=== PATIENT | female | born 1955 | race African-American/Black ===

== ENCOUNTER 2016-10-26 11:51 | Emergency (ER) | payer MEDICAID ==
--- NOTE | 2016-10-26 12:05 | ER Document Report ---
ED Medical Screen (RME) - General Chief Complaint: Breathing Difficulty Stated Complaint: DIFFICULTY BREATHING Time seen by provider: 12:03 Mode of Arrival: Wheelchair Information source: Patient Notes: 60-year-old female states she has had a cough off and on for 4 weeks today when she was at electric commonly she got very short of breath between the time she was at the electric on the end emergency room the shortness of breath was relieved. She has elevated blood pressure in RME but she states she is on blood pressure medicine. Eyes any symptoms I have greeted and performed a rapid initial assessment of this patient. A comprehensive ED assessment and evaluation of the patient, analysis of test results and completion of medical decision making process will be conducted by an additional ED providers. TRAVEL OUTSIDE OF THE [place] IN LAST 30 DAYS: No - Related Data Allergies/Adverse Reactions: Penicillins Allergy (Verified 09/14/16 07:40) Past Medical History - Past Medical History Cardiac Medical History: Reports: Hx Hypertension Malignancy Medical History: Reports: Hx Breast Cancer - abnormal left breast nodule. states unkown if cancerous Musculoskeltal Medical History: Reports Hx Arthritis - RA Psychiatric Medical History: Reports: Hx Anxiety Past Surgical History: Reports: Hx Breast Surgery, Hx Section, Hx Vascular Surgery - vein stripping - Immunizations Immunizations up to date: No Hx Diphtheria, Pertussis, Tetanus Vaccination: Yes
[2016-10-26 12:41] LABS: ABSOLUTE EOSINOPHILS # (AUTO) 0.1 10^3/uL (0.0-0.6); ABSOLUTE LYMPHOCYTES (AUTO) 0.8 10^3/uL (0.5-4.7); ABSOLUTE MONOCYTES (AUTO) 0.4 10^3/uL (0.1-1.4); ABSOLUTE NEUT (AUTO) 2.4 10^3/uL (1.7-8.2); BASOPHILS % (AUTO) 0.7 % (0-2); HEMATOCRIT 34.1 % (36.0-47.0); HEMOGLOBIN 11.3 g/dL (12.0-15.5); HGB HCT DIFFERENCE -0.2; LYMPHOCYTES % (AUTO) 21.9 % (13-45); MEAN CORPUSCULAR HEMOGLOBIN 30.5 pg (27.0-33.4); MEAN CORPUSCULAR HGB CONC 33.1 g/dL (32.0-36.0); MEAN CORPUSCULAR VOLUME 92 fl (80-97); MONOCYTES % (AUTO) 11.7 % (3-13); RED BLOOD COUNT 3.71 10^6/uL (3.72-5.28); RED CELL DISTRIBUTION WIDTH 15.2 % (11.5-14.0); SEGMENTED NEUTROPHILS % (AUTO) 63.7 % (42-78); WHITE BLOOD COUNT 3.8 10^3/uL (4.0-10.5)
[2016-10-26 12:47] LABS: APPEARANCE,URINE SLIGHTLY-CLOUDY; BILIRUBIN,URINE NEGATIVE (NEGATIVE); GLUCOSE, URINE NEGATIVE (NEGATIVE); KETONES,URINE NEGATIVE (NEGATIVE); LEUKOCYTE ESTERASE,URINE SMALL (NEGATIVE); NITRITE,URINE NEGATIVE (NEGATIVE); PROTEIN,URINE 100 mg/dL (NEGATIVE); UROBILINOGEN,URINE NEGATIVE mg/dL (<2.0)
[2016-10-26 13:13] LABS: ALANINE AMINOTRANSFERASE 22 U/L (9-52); ALKALINE PHOSPHATASE 68 U/L (38-126); ANION GAP 11 (5-19); ASPARTATE AMINO TRANSFERASE 18 U/L (14-36); BILIRUBIN,TOTAL 0.5 mg/dL (0.2-1.3); BLOOD UREA NITROGEN 19 mg/dL (7-20); CALCIUM 9.3 mg/dL (8.4-10.2); CARBON DIOXIDE 28 mmol/L (22-30); CHLORIDE 103 mmol/L (98-107); CREATININE RESULT 0.97 mg/dL (0.52-1.25); GLUCOSE 105 mg/dL (75-110); POTASSIUM 4.2 mmol/L (3.6-5.0); SODIUM 142.3 mmol/L (137-145); TOTAL PROTEIN 8.1 g/dL (6.3-8.2)
--- NOTE | 2016-10-26 15:50 | EKG REPORT ---
SEVERITY:- BORDERLINE ECG - SINUS RHYTHM PROBABLE LEFT ATRIAL ABNORMALITY MINIMAL ST ELEVATION, INFERIOR LEADS : Confirmed by: Fior Mixon 26-Oct-2016 15:49:59
--- NOTE | 2016-10-26 16:08 | ER Document Report ---
ED Respiratory Problem - General Chief Complaint: Cough Stated Complaint: DIFFICULTY BREATHING Mode of Arrival: Wheelchair Information source: Patient Notes: 60-year-old female presents to the emergency department complaining of episode of shortness of breath. Patient reports has had persistent cough for approximately the last 3 weeks which she states has lingered after a cold. States cough is productive with small amounts of greenish sputum. Patient reports had episode of shortness of breath this morning they cause her to come to the ED however states shortness of breath had resolved upon arrival. Denies chest pain, fever, nausea or vomiting, diaphoresis. TRAVEL OUTSIDE OF THE [place] IN LAST 30 DAYS: No - HPI Patient complains to provider of: Cough, Short of breath Duration: Worse/persistent Initiating Event: URI Quality of pain: No pain Severity: Mild Pain Level: Denies Short of Breath: Mild Cough: Productive Sputum amount: Scant Sputum color: Green Similar symptoms previously: Yes Recently seen / treated by doctor: No - Related Data Allergies/Adverse Reactions: Penicillins Allergy (Verified 10/26/16 14:12) Past Medical History - General Information source: Patient - Social History Smoking Status: Never Smoker Frequency of alcohol use: None Drug Abuse: None Lives with: Family Family History: Hypertension Patient has suicidal ideation: No Patient has homicidal ideation: No - Past Medical History Cardiac Medical History: Reports: Hx Hypertension Renal/ Medical History: Denies: Hx Peritoneal Dialysis Malignancy Medical History: Reports: Hx Breast Cancer - abnormal left breast nodule. states unkown if cancerous Musculoskeltal Medical History: Reports Hx Arthritis - RA Psychiatric Medical History: Reports: Hx Anxiety Past Surgical History: Reports: Hx Breast Surgery, Hx Section, Hx Vascular Surgery - vein stripping - Immunizations Immunizations up to date: No Hx Diphtheria, Pertussis, Tetanus Vaccination: Yes Review of Systems - Review of Systems Constitutional: No symptoms reported EENT: No symptoms reported Cardiovascular: No symptoms reported Respiratory: See HPI Gastrointestinal: No symptoms reported Genitourinary: No symptoms reported Female Genitourinary: No symptoms reported Musculoskeletal: No symptoms reported Skin: No symptoms reported Hematologic/Lymphatic: No symptoms reported Neurological/Psychological: No symptoms reported -: Yes All other systems reviewed and negative Physical Exam - Vital signs Vitals: Temp Pulse Resp BP Pulse Ox 97.9 F 75 18 221/86 H 99 10/26/16 12:00 10/26/16 12:00 10/26/16 12:00 10/26/16 12:00 10/26/16 12:00 Interpretation: Normal - General General appearance: Appears well, Alert In distress: None - HEENT Head: Normocephalic, Atraumatic Eyes: Normal Pupils: PERRL - Respiratory Respiratory status: No respiratory distress Chest status: Nontender Breath sounds: Normal - CTAB, Nonproductive cough. No: Rhonchi, Wheezing Chest palpation: Normal - Cardiovascular Rhythm: Regular Heart sounds: Normal auscultation Murmur: No Pulses: Normal: Radial Normal capillary refill: Yes - Abdominal Inspection: Normal Distension: No distension Bowel sounds: Normal Tenderness: Nontender Organomegaly: No organomegaly - Back Back: Normal, Nontender - Extremities General upper extremity: Normal inspection, Nontender, Normal color, Normal ROM , Normal strength, Normal temperature. No: Tender, Edema General lower extremity: Normal inspection, Nontender, Normal color, Normal ROM , Normal strength, Normal temperature, Normal weight bearing. No: Tender, Edema , Rachana's sign - Neurological Neuro grossly intact: Yes Cognition: Normal Orientation: AAOx4 [place] Coma Scale Eye Opening: Spontaneous [place] Coma Scale Verbal: Oriented [place] Coma Scale Motor: Obeys Commands [place] Coma Scale Total: 15 Speech: Normal Motor strength normal: LUE, RUE, LLE, RLE Sensory: Normal - Psychological Associated symptoms: Normal affect, Normal mood - Skin Skin Temperature: Warm Skin Moisture: Dry Skin Color: Normal Course - Re-evaluation Re-evalutation: 10/26/16 16:20 Patient very well appearing, hemodynamically stable, in no distress, afebrile. Chest x-ray shows stable cardiomegaly with mild vascular prominence and no other significant abnormalities or suggestion of pneumonia. Labs appear to be at patient's baseline when compared to previous results. Patient presentation, findings, previous history, and ED care up to this point discussed with ED physician Dr. Vega recommends symptomatic treatment and follow-up with primary care provider within one to 2 days. Patient appears so for discharge at this time and states feels much better, agrees with home care, follow-up with PCP, and ED return precautions. - Vital Signs Vital signs: Temp Pulse Resp BP Pulse Ox 98.9 F 50 L 16 177/93 H 98 10/26/16 16:18 10/26/16 16:18 10/26/16 16:18 10/26/16 16:18 10/26/16 16:18 - Laboratory Result Diagrams: 10/26/16 12:20 10/26/16 12:20 Laboratory results interpreted by me: 10/26/16 10/26/16 10/26/16 12:20 12:20 12:20 WBC 3.8 L RBC 3.71 L Hgb 11.3 L Hct 34.1 L RDW 15.2 H Est GFR (Non-Af Amer) 59 L Urine Protein 100 H Ur Leukocyte Esterase SMALL H - Diagnostic Test Radiology reviewed: Image reviewed, Reports reviewed - EKG Interpretation by Me EKG shows normal: Sinus rhythm, [place], Intervals, QRS Complexes, ST-T Waves Rate: Normal Rhythm: NSR When compared to previous EKG there are: No significant change Discharge - Discharge Clinical Impression: Shortness of breath, Cough Condition: Stable Disposition: HOME, SELF-CARE Instructions: Dyspnea, Nonspecific ([facility]), Cough Suppressant & Expectorant Medications, Upper Respiratory Illness ([facility]) Additional Instructions: Follow-up with your primary care provider tomorrow as discussed. Return to the emergency department for any worsening symptoms or concerns. Prescriptions: Guaifenesin/D-Methorphan Hb [Guaifenesin-Dextromethorph Tab] 1 each PO Q12HP PRN #8 tab.sr.[id number] PRN Reason: Cough Forms: Elevated Blood Pressure Referrals: DENISE LUJAN MD [Primary Care Provider] - Follow up tomorrow
[2016-10-26 16:20] VITALS: BP 177/93
== END 2016-10-26 16:20 | disposition home or self-care (01) ==
LOC: ER 11:51
DX: R06.02 Shortness of breath (principal); R05 Cough
CPT/HCPCS: 36415; 71020; 80053; 81001; 85025; 93005; 93010; 99284

== ENCOUNTER 2017-11-18 10:22 | Emergency (ER) | payer MEDICAID ==
--- NOTE | 2017-11-18 10:55 | ER Document Report ---
ED Medical Screen (RME) - General Chief Complaint: Palpitations Stated Complaint: CHEST PALPITATIONS Time Seen by Provider: 11/18/17 10:51 Mode of Arrival: Ambulatory Information source: Patient Notes: This is a 61-year-old female with a history of hypertension and anxiety who presents to the emergency room with sensations of heart racing occurs when she stands up. Patient denies shortness of breath. She looks a bit uncomfortable in triage. Her oxygen saturation is 96%. Her initial EKG is sinus tachycardia with no acute ST or T-wave changes. She denies calf tenderness. She denies history of thyroid dysfunction. Primary CARE physician: Dr. Pal Medicines: Amlodipine, hydrochlorothiazide, metoprolol, cetirizine. Family history: Patient denies history of VTE, early heart disease. Allergies: Penicillin Social: Denies smoking TRAVEL OUTSIDE OF THE [place] IN LAST 30 DAYS: No - Related Data Allergies/Adverse Reactions: Penicillins Allergy (Verified 10/26/16 14:12) Past Medical History - Social History Chew tobacco use (# tins/day): No Frequency of alcohol use: None Drug Abuse: None - Past Medical History Cardiac Medical History: Reports: Hx Hypertension Renal/ Medical History: Denies: Hx Peritoneal Dialysis Malignancy Medical History: Reports: Hx Breast Cancer - abnormal left breast nodule. states unkown if cancerous Musculoskeltal Medical History: Reports Hx Arthritis - RA Psychiatric Medical History: Reports: Hx Anxiety Past Surgical History: Reports: Hx Breast Surgery, Hx Section, Hx Vascular Surgery - vein stripping - Immunizations Immunizations up to date: No Hx Diphtheria, Pertussis, Tetanus Vaccination: Yes Physical Exam - Vital signs Vitals: Temp Pulse Resp BP Pulse Ox 98.7 F 132 H 20 179/79 H 99 11/18/17 10:43 11/18/17 10:43 11/18/17 10:43 11/18/17 10:43 11/18/17 10:43 Course - Vital Signs Vital signs: Temp Pulse Resp BP Pulse Ox 98.7 F 132 H 20 179/79 H 99 11/18/17 10:43 11/18/17 10:43 11/18/17 10:43 11/18/17 10:43 11/18/17 10:43
[2017-11-18] MEDS ORDERED: NORMAL SALINE 1000 ML 1,000 ML IV ONE (11:14)
--- NOTE | 2017-11-18 11:16 | ER Document Report ---
ED General - General Chief Complaint: Palpitations Stated Complaint: CHEST PALPITATIONS Time Seen by Provider: 11/18/17 10:51 Mode of Arrival: Ambulatory TRAVEL OUTSIDE OF THE [place] IN LAST 30 DAYS: No - HPI Patient complains to provider of: tachycardia Notes: Patient presents with tachycardia when standing. She feels her heart racing. Has no history of palpitations or thyroid dysfunction. Denies shortness of breath or chest pain. Denies any fever chills or illnesses. Patient is on disability secondary to anxiety disorder. Has had multiple panic attacks in the past similar to this 1. - Related Data Allergies/Adverse Reactions: Penicillins Allergy (Verified 10/26/16 14:12) Past Medical History - General Information source: Patient - Social History Smoking Status: Former Smoker Chew tobacco use (# tins/day): No Frequency of alcohol use: None Drug Abuse: None Family History: Hypertension Patient has suicidal ideation: No Patient has homicidal ideation: No - Past Medical History Cardiac Medical History: Reports: Hx Hypertension Renal/ Medical History: Denies: Hx Peritoneal Dialysis Malignancy Medical History: Reports: Hx Breast Cancer - abnormal left breast nodule. states unkown if cancerous Musculoskeltal Medical History: Reports Hx Arthritis - RA Psychiatric Medical History: Reports: Hx Anxiety Past Surgical History: Reports: Hx Breast Surgery, Hx Section, Hx Vascular Surgery - vein stripping - Immunizations Immunizations up to date: No Hx Diphtheria, Pertussis, Tetanus Vaccination: Yes Review of Systems - Review of Systems Constitutional: No symptoms reported EENT: No symptoms reported Cardiovascular: Palpitations Respiratory: No symptoms reported Gastrointestinal: No symptoms reported Genitourinary: No symptoms reported Female Genitourinary: No symptoms reported Musculoskeletal: No symptoms reported Skin: No symptoms reported Hematologic/Lymphatic: No symptoms reported Neurological/Psychological: No symptoms reported Physical Exam - Vital signs Vitals: Temp Pulse Resp BP Pulse Ox 98.7 F 132 H 20 179/79 H 99 11/18/17 10:43 11/18/17 10:43 11/18/17 10:43 11/18/17 10:43 11/18/17 10:43 Interpretation: Normal - General General appearance: Appears well, Alert - HEENT Head: Normocephalic, Atraumatic Eyes: Normal Pupils: PERRL - Respiratory Respiratory status: No respiratory distress Chest status: Nontender Breath sounds: Normal Chest palpation: Normal - Cardiovascular Rhythm: Regular Heart sounds: Normal auscultation Murmur: No - Abdominal Inspection: Normal Distension: No distension Bowel sounds: Normal Tenderness: Nontender Organomegaly: No organomegaly - Back Back: Normal, Nontender - Extremities General upper extremity: Normal inspection, Nontender, Normal color, Normal ROM , Normal temperature General lower extremity: Normal inspection, Nontender, Normal color, Normal ROM , Normal temperature, Normal weight bearing. No: Rachana's sign - Neurological Neuro grossly intact: Yes Cognition: Normal Orientation: AAOx4 [place] Coma Scale Eye Opening: Spontaneous [place] Coma Scale Verbal: Oriented [place] Coma Scale Motor: Obeys Commands [place] Coma Scale Total: 15 Speech: Normal Motor strength normal: LUE, RUE, LLE, RLE Sensory: Normal - Psychological Associated symptoms: Normal affect, Normal mood - Skin Skin Temperature: Warm Skin Moisture: Dry Skin Color: Normal Course - Re-evaluation Re-evalutation: 11/18/17 12:27 Pleasant female presents with rapid heartbeat. Patient very anxious having panic attack. Given oral Ativan feeling much improved. EKG unremarkable, extensive lab workup unremarkable, chest x-ray shows no acute process. Follow- up with family doctor return if anything changes - Vital Signs Vital signs: Temp Pulse Resp BP Pulse Ox 98.7 F 94 17 166/83 H 100 11/18/17 10:43 11/18/17 11:20 11/18/17 11:20 11/18/17 11:20 11/18/17 11:20 - Laboratory Result Diagrams: 11/18/17 11:00 11/18/17 11:00 Laboratory results interpreted by me: 11/18/17 11/18/17 11:00 11:00 Hgb 11.9 L Hct 35.1 L Potassium 3.4 L BUN 23 H Est GFR (Non-Af Amer) 52 L Total Protein 8.4 H Discharge - Discharge Clinical Impression: Panic attack Disposition: HOME, SELF-CARE Instructions: Palpitations (Irregular or Rapid Heartrate) ([facility]) Additional Instructions: See your PCP
[2017-11-18 11:18] LABS: ABSOLUTE EOSINOPHILS # (AUTO) 0.1 10^3/uL (0.0-0.6); ABSOLUTE LYMPHOCYTES (AUTO) 1.4 10^3/uL (0.5-4.7); ABSOLUTE MONOCYTES (AUTO) 0.6 10^3/uL (0.1-1.4); ABSOLUTE NEUT (AUTO) 3.9 10^3/uL (1.7-8.2); BASOPHILS % (AUTO) 0.6 % (0-2); HEMATOCRIT 35.1 % (36.0-47.0); HEMOGLOBIN 11.9 g/dL (12.0-15.5); LYMPHOCYTES % (AUTO) 23.1 % (13-45); MEAN CORPUSCULAR HEMOGLOBIN 31.2 pg (27.0-33.4); MEAN CORPUSCULAR VOLUME 92 fl (80-97); MONOCYTES % (AUTO) 9.4 % (3-13); PLATELET COUNT 224 10^3/uL (150-450); RED BLOOD COUNT 3.82 10^6/uL (3.72-5.28); RED CELL DISTRIBUTION WIDTH 12.9 % (11.5-14.0); SEGMENTED NEUTROPHILS % (AUTO) 65.9 % (42-78); TOTAL CELLS COUNTED % (AUTO) 100 %; WHITE BLOOD COUNT 5.9 10^3/uL (4.0-10.5)
[2017-11-18] MEDS ORDERED: LORAZEPAM INJ 2 MG/1 ML VIAL IV ONE (11:20)
[2017-11-18] MEDS ORDERED: LORAZEPAM 1 MG TABLET PO ONE (11:37)
[2017-11-18 11:39] LABS: ALANINE AMINOTRANSFERASE 25 U/L (9-52); ALBUMIN 4.1 g/dL (3.5-5.0); ALKALINE PHOSPHATASE 61 U/L (38-126); ANION GAP 13 (5-19); ASPARTATE AMINO TRANSFERASE 20 U/L (14-36); BILIRUBIN,DIRECT 0.3 mg/dL (0.0-0.4); BILIRUBIN,TOTAL 0.5 mg/dL (0.2-1.3); BLOOD UREA NITROGEN 23 mg/dL (7-20); CALCIUM 9.9 mg/dL (8.4-10.2); CARBON DIOXIDE 23 mmol/L (22-30); CHLORIDE 105 mmol/L (98-107); CREATINE KINASE 95 U/L (30-135); GLUCOSE 108 mg/dL (75-110); POTASSIUM 3.4 mmol/L (3.6-5.0); SODIUM 141.1 mmol/L (137-145); TOTAL PROTEIN 8.4 g/dL (6.3-8.2)
[2017-11-18 11:50] LABS: CREATINE KINASE MB 0.57 ng/mL (<4.55)
[2017-11-18 11:52] LABS: TROPONIN I < 0.012 ng/mL
--- NOTE | 2017-11-18 12:35 | RADIOLOGY REPORT (SQ) ---
EXAM DESCRIPTION: CHEST PA/LAT COMPLETED DATE/TIME: 11/18/2017 12:11 pm REASON FOR STUDY: palpitations COMPARISON: 10/26/2016 EXAM PARAMETERS: NUMBER OF VIEWS: two views TECHNIQUE: Digital Frontal and Lateral radiographic views of the chest acquired. RADIATION DOSE: NA LIMITATIONS: none FINDINGS: LUNGS AND PLEURA: No opacities, masses or pneumothorax. No pleural effusion. MEDIASTINUM AND HILAR STRUCTURES: No masses or contour abnormalities. HEART AND VASCULAR STRUCTURES: Heart normal size. No evidence for failure. BONES: No acute findings. HARDWARE: None in the chest. OTHER: No other significant finding. IMPRESSION: NO SIGNIFICANT RADIOGRAPHIC FINDING IN THE CHEST. TECHNICAL DOCUMENTATION: JOB ID: [id number] [employer]- All Rights Reserved
[2017-11-18 12:57] VITALS: BP 142/56
--- NOTE | 2017-11-19 11:08 | EKG REPORT ---
SEVERITY:- ABNORMAL ECG - SINUS TACHYCARDIA RIGHT ATRIAL ABNORMALITY : Confirmed by: Fior Mixon 19-Nov-2017 11:07:44
== END 2017-11-18 12:56 | disposition home or self-care (01) ==
LOC: ER 10:22
DX: F41.0 Panic disorder [episodic paroxysmal anxiety] (principal); F41.9 Anxiety disorder, unspecified; R00.2 Palpitations; R00.0 Tachycardia, unspecified; I10 Essential (primary) hypertension; Z88.0 Allergy status to penicillin; Z87.891 Personal history of nicotine dependence
CPT/HCPCS: 36415; 71046; 80053; 82550; 82553; 84443; 84484; 85025; 93005; 93010; 99285

== ENCOUNTER 2017-11-22 06:32 | Emergency (ER) | payer MEDICAID ==
--- NOTE | 2017-11-22 06:46 | EKG REPORT ---
SEVERITY:- BORDERLINE ECG - SINUS RHYTHM PROBABLE LEFT ATRIAL ABNORMALITY : Confirmed by: Blake Freeman MD 22-Nov-2017 06:45:36
[2017-11-22] MEDS ORDERED: HYDROCHLOROTHIAZIDE 25 MG TABLET PO ONE (07:16)
[2017-11-22] MEDS ORDERED: METOPROLOL TARTRATE 50 MG TABLET PO ONE (07:16)
[2017-11-22 07:52] LABS: ABSOLUTE EOSINOPHILS # (AUTO) 0.1 10^3/uL (0.0-0.6); ABSOLUTE MONOCYTES (AUTO) 0.4 10^3/uL (0.1-1.4); ABSOLUTE NEUT (AUTO) 2.8 10^3/uL (1.7-8.2); BASOPHILS % (AUTO) 0.7 % (0-2); EOSINOPHILS % (AUTO) 1.6 % (0-6); HEMATOCRIT 34.6 % (36.0-47.0); HEMOGLOBIN 11.7 g/dL (12.0-15.5); LYMPHOCYTES % (AUTO) 22.5 % (13-45); MEAN CORPUSCULAR HEMOGLOBIN 31.2 pg (27.0-33.4); MEAN CORPUSCULAR HGB CONC 33.9 g/dL (32.0-36.0); MEAN CORPUSCULAR VOLUME 92 fl (80-97); MONOCYTES % (AUTO) 8.9 % (3-13); PLATELET COUNT 212 10^3/uL (150-450); RED BLOOD COUNT 3.76 10^6/uL (3.72-5.28); RED CELL DISTRIBUTION WIDTH 13.1 % (11.5-14.0); SEGMENTED NEUTROPHILS % (AUTO) 66.3 % (42-78); TOTAL CELLS COUNTED % (AUTO) 100 %; WHITE BLOOD COUNT 4.2 10^3/uL (4.0-10.5)
[2017-11-22 08:15] LABS: ANION GAP 8 (5-19); BLOOD UREA NITROGEN 21 mg/dL (7-20); CALCIUM 9.4 mg/dL (8.4-10.2); CARBON DIOXIDE 27 mmol/L (22-30); CHLORIDE 104 mmol/L (98-107); GLUCOSE 102 mg/dL (75-110); POTASSIUM 3.1 mmol/L (3.6-5.0); SODIUM 139.4 mmol/L (137-145)
[2017-11-22] MEDS ORDERED: POTASSIUM CHLORIDE 10 MEQ TABLET.SA PO ONE (08:46)
--- NOTE | 2017-11-22 08:57 | ER Document Report ---
ED General - General Chief Complaint: Palpitations Stated Complaint: RAPID HEART RATE Time Seen by Provider: 11/22/17 07:10 TRAVEL OUTSIDE OF THE [place] IN LAST 30 DAYS: No - HPI Patient complains to provider of: Palpitations Notes: Patient coming in for palpitations. Patient states was seen earlier this morning sleeping she woke up with palpitations. Patient has a history of anxiety was recently seen for similar incidences. Patient denies any fevers chills nausea vomiting diarrhea denies any chest pain shortness of breath with her symptoms this morning. Patient also after evaluation is requesting that I look into her ears is that there is "wind blowing in them". - Related Data Allergies/Adverse Reactions: Penicillins Allergy (Verified 10/26/16 14:12) Past Medical History - Social History Smoking Status: Unknown if Ever Smoked Family History: Hypertension Patient has suicidal ideation: No Patient has homicidal ideation: No - Past Medical History Cardiac Medical History: Reports: Hx Hypertension Renal/ Medical History: Denies: Hx Peritoneal Dialysis Malignancy Medical History: Reports: Hx Breast Cancer - abnormal left breast nodule. states unkown if cancerous Musculoskeltal Medical History: Reports Hx Arthritis - RA Psychiatric Medical History: Reports: Hx Anxiety Past Surgical History: Reports: Hx Breast Surgery, Hx Section, Hx Vascular Surgery - vein stripping - Immunizations Immunizations up to date: No Hx Diphtheria, Pertussis, Tetanus Vaccination: Yes Review of Systems - Review of Systems Constitutional: No symptoms reported EENT: No symptoms reported Cardiovascular: Palpitations Respiratory: No symptoms reported Gastrointestinal: No symptoms reported Genitourinary: No symptoms reported Female Genitourinary: No symptoms reported Musculoskeletal: No symptoms reported Skin: No symptoms reported Hematologic/Lymphatic: No symptoms reported Neurological/Psychological: No symptoms reported -: Yes All other systems reviewed and negative Physical Exam - Vital signs Vitals: Temp Pulse Resp BP Pulse Ox 97.9 F 96 22 H 185/68 H 100 11/22/17 06:37 11/22/17 06:37 11/22/17 06:37 11/22/17 06:37 11/22/17 06:37 Interpretation: Normal - General General appearance: Appears well, Alert - HEENT Head: Normocephalic, Atraumatic Eyes: Normal Conjunctiva: Normal Cornea: Normal Extraocular movements intact: Yes Pupils: PERRL Ears: Normal External canal: Normal Tympanic membrane: Normal Sinus: Normal Nasal: Normal Pharynx: Normal Neck: Normal - Respiratory Respiratory status: No respiratory distress Chest status: Nontender Breath sounds: Normal Chest palpation: Normal - Cardiovascular Rhythm: Regular Heart sounds: Normal auscultation Murmur: No - Abdominal Inspection: Normal Distension: No distension Bowel sounds: Normal Tenderness: Nontender Organomegaly: No organomegaly - Back Back: Normal, Nontender - Extremities General upper extremity: Normal inspection, Nontender, Normal color, Normal ROM , Normal temperature General lower extremity: Normal inspection, Nontender, Normal color, Normal ROM , Normal temperature, Normal weight bearing. No: Rachana's sign - Neurological Neuro grossly intact: Yes Cognition: Normal Orientation: AAOx4 [place] Coma Scale Eye Opening: Spontaneous [place] Coma Scale Verbal: Oriented [place] Coma Scale Motor: Obeys Commands [place] Coma Scale Total: 15 Speech: Normal Motor strength normal: LUE, RUE, LLE, RLE Sensory: Normal - Psychological Associated symptoms: Normal affect, Normal mood - Skin Skin Temperature: Warm Skin Moisture: Dry Skin Color: Normal Course - Re-evaluation Re-evalutation: 11/22/17 15:13 Patient sleeping upon my reevaluation no signs of any significant pathology. Patient was encouraged to follow-up with a Holter monitor. Patient states she has done this in the past. Explained to patient more likely she will need a repeat. Patient requesting medication for anxiety. Patient patient follow-up with her PCP which she has an appointment with on . Patient discharged home The patient has palpitations pain as the patient's chest pain is not suggestive of pulmonary embolus, cardiac ischemia, aortic dissection, or other serious etiology. Given the extremely low risk of these diagnoses further testing and evaluation for these possibilities does not appear to be indicated at this time. The patient has been instructed to return if the symptoms worsen or change in any way. 11/22/17 15:13 Potassium replaced - Vital Signs Vital signs: Temp Pulse Resp BP Pulse Ox 97.9 F 96 15 133/73 H 99 11/22/17 06:37 11/22/17 06:37 11/22/17 09:01 11/22/17 09:01 11/22/17 09:01 - Laboratory Result Diagrams: 11/22/17 07:40 11/22/17 07:40 Laboratory results interpreted by me: 11/22/17 11/22/17 07:40 07:40 Hgb 11.7 L Hct 34.6 L Potassium 3.1 L BUN 21 H Est GFR (Non-Af Amer) 52 L Discharge - Discharge Clinical Impression: Palpitations, Anxiety, Hypokalemia Hypertension Qualifiers: Hypertension type: unspecified Qualified Code(s): I10 - Essential (primary) hypertension Condition: Good Disposition: HOME, SELF-CARE Instructions: Anxiety ([facility]), High Blood Pressure, Requiring Treatment ([facility]), Palpitations (Irregular or Rapid Heartrate) ([facility]) Additional Instructions: Your seen today for palpitations. This may be due to underlying anxiety. Please follow-up with your primary care physician as scheduled on . Continue your home medications as prescribed. Highly recommend discussing with your physician about her anxiety and your palpitations. At this time her laboratory studies EKG did not show any critical abnormalities. The only abnormality was a slightly low potassium which we will replace here in the ER. Please make sure you are eating a healthy diet full of healthy vegetables leafy green vegetables to make sure that you are obtaining the required nutrients. Forms: Smoking Cessation Education, Elevated Blood Pressure Referrals: PATRICIA CROCKETT MD [Primary Care Provider] - Follow up as needed
[2017-11-22 09:47] VITALS: BP 133/73
== END 2017-11-22 09:39 | disposition home or self-care (01) ==
LOC: ER 06:32
DX: R00.2 Palpitations (principal); E87.6 Hypokalemia; F41.9 Anxiety disorder, unspecified; I10 Essential (primary) hypertension; Z88.0 Allergy status to penicillin; Z85.3 Personal history of malignant neoplasm of breast
CPT/HCPCS: 93005; 99285; 36415; 85025; 80048; 84484; 93010; J3490 ×2

== ENCOUNTER → 2017-12-10 | Outpatient (CLI) | payer MEDICAID ==
--- NOTE | 2017-12-10 17:11 | WOMENS IMAGING REPORT ---
EXAM DESCRIPTION: BILAT SCREENING MAMMO W/CAD COMPLETED DATE/TIME: 12/10/2017 2:04 pm REASON FOR STUDY: SCREENING MAMMO Z12.31 ENCNTR SCREEN MAMMOGRAM FOR MALIGNANT NEOPLASM OF ISHAAN COMPARISON: 08/05/2016. TECHNIQUE: Standard craniocaudal and mediolateral oblique views of each breast recorded using [employer] [place] acquisition. LIMITATIONS: None. FINDINGS: Findings present which are benign by mammographic criteria. No suspicious masses, calcifi cations or architectural distortion. Pertinent benign findings: Surgical changes in the left breast. Read with the assistance of CAD. .[facility] - R2 Cenova Version 1.3 .[facility] Imaging - R2 Cenova Version 1.3 .[facility] - R2 Cenova Version 2.4 .[facility] [place] R2 Cenova Version 2.4 .[facility] - R2 Gas Usage Meter Clerk Version 9.2 Benign mammographic findings may include one or more of the following: Smooth masses, popcorn/rim/co arse calcifications, asymmetries, post-procedure changes, and lesions with long-standing stability. IMPRESSION: BENIGN MAMMOGRAPHIC FINDINGS. BIRADS 2 BREAST DENSITY: c. The breasts are heterogeneously dense, which may obscure small masses. BIRAD: 2 BENIGN FINDING(S) RECOMMENDATION: ROUTINE SCREENING COMMENT: The patient has been notified of the results by letter per SA requirements. Additional no tification policies are in place for contacting patient with suspicious or incomplete findings. Quality ID #[id number]: The [employer] recommends an annual screening mammogram for women aged 40 years or over. This facility utilizes a reminder system to ensure that all patients receive reminder letters, and/or direct phone calls for appointments. This includes reminders for routine scr eening mammograms, diagnostic mammograms, or other Breast Imaging Interventions when appropriate. Th is patient will be placed in the appropriate reminder system. The [employer] (ACR) has developed recommendations for screening MRI of the breast s in certain patient populations, to be used in conjunction with mammography. Breast MRI surveillanc e may be appropriate for women with more than 20% lifetime risk of developing breast cancer as deter mined by genetic testing, significant family history of the disease, or history of mantle radiation f or Hodgkins Disease. ACR Practice Guidelines 2008. TECHNICAL DOCUMENTATION: FINDING NUMBER: (1) ASSESSMENT: (1) JOB ID: [id number] [employer]- All Rights Reserved Reading location - IP[facility]workstation [facility]: [email or web address]
== END ==
LOC: WI 13:03
PROVIDERS: ATTEND Physician Assistant
DX: Z12.31 Encounter for screening mammogram for malignant neoplasm of breast (principal)
CPT/HCPCS: 77067

== ENCOUNTER → 2018-05-05 | Day surgery (SDC) | payer MEDICAID ==
[2018-05-05 14:43] LABS: FLUID COLOR STRAW; FLUID SOURCE KNEE; FLUID TYPE SYNOVIAL
[2018-05-05 14:44] LABS: FLUID APPEARANCE CLEAR; FLUID VISCOSITY LIQUID
--- NOTE | 2018-05-05 15:40 | RADIOLOGY REPORT (SQ) ---
EXAM DESCRIPTION: INJECT/ASPIR HIP/SHLDR/KNEE; FLUORO/NEEDLE PLACEMENT COMPLETED DATE/TIME: 05/05/2018 2:05 pm REASON FOR STUDY: ARTHROFIBROSIS OF TOTAL KNEE ARTHROPLASTY, INITIAL ENCCTR (T84.82XA) T84.82XA FIB ROSIS DUE TO INTERNAL ORTHOPEDIC PROSTH DEV/GRFT fluoroscopic joint space aspiration for Gram stain a nd culture COMPARISON: None. FLUOROSCOPY TIME: 24 seconds 1 digital radiographic images saved to PACS. LIMITATIONS: None. PROCEDURE: SITE OF ASPIRATION: Left knee joint patellofemoral compartment LOCALIZING CONTRAST TYPE AND DOSE: None required Using local anesthesia and sterile technique with fluoroscopic guidance, a 22 gauge needle was advanc ed into the joint. Fluoroscopy used to verify intraarticular placement. This was followed by inject ion of 10 mL of preservative free sterile saline. 6 mL of the injected sterile saline was withdrawn from the knee joint space, sent to the lab for Gram stain culture and sensitivity. The needle was re moved. There were no immediate complications. IMPRESSION: ASPIRATION OF THE LEFT KNEE JOINT UNDER FLUOROSCOPY, JOINT SPACE FLUID GRAM STAIN CULTUR E AND SENSITIVITY IS PENDING. NO IMMEDIATE POST PROCEDURE COMPLICATION. COMMENT: Patient medication list reviewed: Yes- Quality ID# [id number]:Eligible professional attests to doc umenting in the medical record they obtained, updated, or reviewed the patient's current medications. . Quality ID 145: Final reports for procedures using fluoroscopy that document radiation exposure silke hank, or exposure time and number of fluorographic images (if radiation exposure indices are not avail able) TECHNICAL DOCUMENTATION: JOB ID: [id number] [employer]- All Rights Reserved Reading location - IP/workstation name: [email or web address]
--- NOTE | 2018-05-05 15:40 | RADIOLOGY REPORT (SQ) ---
EXAM DESCRIPTION: INJECT/ASPIR HIP/SHLDR/KNEE; FLUORO/NEEDLE PLACEMENT COMPLETED DATE/TIME: 05/05/2018 2:05 pm REASON FOR STUDY: ARTHROFIBROSIS OF TOTAL KNEE ARTHROPLASTY, INITIAL ENCCTR (T84.82XA) T84.82XA FIB ROSIS DUE TO INTERNAL ORTHOPEDIC PROSTH DEV/GRFT fluoroscopic joint space aspiration for Gram stain a nd culture COMPARISON: None. FLUOROSCOPY TIME: 24 seconds 1 digital radiographic images saved to PACS. LIMITATIONS: None. PROCEDURE: SITE OF ASPIRATION: Left knee joint patellofemoral compartment LOCALIZING CONTRAST TYPE AND DOSE: None required Using local anesthesia and sterile technique with fluoroscopic guidance, a 22 gauge needle was advanc ed into the joint. Fluoroscopy used to verify intraarticular placement. This was followed by inject ion of 10 mL of preservative free sterile saline. 6 mL of the injected sterile saline was withdrawn from the knee joint space, sent to the lab for Gram stain culture and sensitivity. The needle was re moved. There were no immediate complications. IMPRESSION: ASPIRATION OF THE LEFT KNEE JOINT UNDER FLUOROSCOPY, JOINT SPACE FLUID GRAM STAIN CULTUR E AND SENSITIVITY IS PENDING. NO IMMEDIATE POST PROCEDURE COMPLICATION. COMMENT: Patient medication list reviewed: Yes- Quality ID# [id number]:Eligible professional attests to doc umenting in the medical record they obtained, updated, or reviewed the patient's current medications. . Quality ID 145: Final reports for procedures using fluoroscopy that document radiation exposure silke hank, or exposure time and number of fluorographic images (if radiation exposure indices are not avail able) TECHNICAL DOCUMENTATION: JOB ID: [id number] [employer]- All Rights Reserved Reading location - IP/workstation name: [email or web address]
== END ==
LOC: RAD 13:18
PROVIDERS: ATTEND Physician Assistant Surgical
DX: T84.82XA Fibrosis due to internal orthopedic prosthetic devices, implants and grafts, initial encounter (principal); Y79.3 Surgical instruments, materials and orthopedic devices (including sutures) associated with adverse incidents
CPT/HCPCS: 20610; 77002; 87070; 87075; 87205; 89050

== ENCOUNTER → 2018-12-15 | Outpatient (CLI) | payer MEDICAID ==
--- NOTE | 2018-12-15 08:43 | WOMENS IMAGING REPORT ---
EXAM DESCRIPTION: 3D SCREENING MAMMO BILAT COMPLETED DATE/TIME: 12/15/2018 8:30 am REASON FOR STUDY: Z12.31 ROUTINE 3D BILATERAL SCREENING Z12.31 ENCNTR SCREEN MAMMOGRAM FOR MALIGNAN T NEOPLASM OF ISHAAN COMPARISON: 12/10/2017 and 08/05/2016. TECHNIQUE: Standard craniocaudal and mediolateral oblique views of each breast recorded using digita l acquisition and breast tomosynthesis. LIMITATIONS: None. FINDINGS: Findings present which are benign by mammographic criteria. No suspicious masses, calcific ations or architectural distortion. Pertinent benign findings: Stable surgical changes in the left breast. Read with the assistance of CAD. .[facility] - R2 C[employer]ova Version 1.3 .[facility] - R2 Cenova Version 2.1 .[facility] - R2 Cenova Version 2.4 .[place] - R2 Cenova Version 2.4 .[facility] - R2 [employer]er Version 9.2 Benign mammographic findings may include one or more of the following: Smooth masses, popcorn/rim/coa rse calcifications, asymmetries, post-procedure changes, and lesions with long-standing stability. IMPRESSION: BENIGN MAMMOGRAPHIC FINDINGS. BIRADS 2 BREAST DENSITY: c. The breasts are heterogeneously dense, which may obscure small masses. BIRAD: 2 BENIGN FINDING(S) RECOMMENDATION: ROUTINE SCREENING COMMENT: The patient has been notified of the results by letter per [place] requirements. Additional no tification policies are in place for contacting patient with suspicious or incomplete findings. Quality ID #225: The [employer] recommends an annual screening mammogram for women aged 40 years or over. This facility utilizes a reminder system to ensure that all patients receive reminder letters, and/or direct phone calls for appointments. This includes reminders for routine scr eening mammograms, diagnostic mammograms, or other Breast Imaging Interventions when appropriate. Th is patient will be placed in the appropriate reminder system. The [employer] (ACR) has developed recommendations for screening MRI of the breast s in certain patient populations, to be used in conjunction with mammography. Breast MRI surveillanc e may be appropriate for women with more than 20% lifetime risk of developing breast cancer as deter mined by genetic testing, significant family history of the disease, or history of mantle radiation f or Hodgkins Disease. ACR Practice Guidelines 2008. DBT Technology DBT is a type of tomographic mammography. With conventional mammography, overlapping breast tissue ma y make lesions difficult to detect, even with good compression. DBT uses an x-ray tube that rotates a round the breast, taking images at different angles. These images are then combined to create thin sl ices of the breast that the radiologist can view as a 3D reconstruction. The [employer] unit can perform full-field digital mammograms (2D imaging); or DBT (3D imaging); or both, in a combination mode that quickly performs both the mammogram and the tomosynthesis scan while the breast is still compressed. PQRS 6045F: Fluoroscopic imaging is not utilized for breast tomosynthesis. TECHNICAL DOCUMENTATION: FINDING NUMBER: (1) ASSESSMENT: (1) JOB ID: [id number] [employer]- All Rights Reserved Reading location - IP/workstation name: [email or web address]
== END ==
LOC: WI 08:05
PROVIDERS: ATTEND Physician Assistant
DX: Z12.31 Encounter for screening mammogram for malignant neoplasm of breast (principal)
CPT/HCPCS: 77063; 77067

== ENCOUNTER 2020-01-14 07:00 | Emergency (ER) | payer MEDICAID ==
[2020-01-14] MEDS ORDERED: TRIAMTERENE/HYDROCHLOROTHIAZIDE 37.5-25 MG TABLET PO ONE (08:32)
[2020-01-14] MEDS ORDERED: METOPROLOL SUCCINATE 50 MG TAB.SR.24H PO ONE (08:32)
[2020-01-14 09:17] LABS: ABSOLUTE EOSINOPHILS # (AUTO) 0.1 10^3/uL (0.0-0.6); ABSOLUTE LYMPHOCYTES (AUTO) 0.9 10^3/uL (0.5-4.7); ABSOLUTE MONOCYTES (AUTO) 0.4 10^3/uL (0.1-1.4); ABSOLUTE NEUT (AUTO) 5.2 10^3/uL (1.7-8.2); BASOPHILS % (AUTO) 0.4 % (0-2); EOSINOPHILS % (AUTO) 0.9 % (0-6); HEMATOCRIT 36.7 % (36.0-47.0); HEMOGLOBIN 12.7 g/dL (12.0-15.5); LYMPHOCYTES % (AUTO) 13.8 % (13-45); MEAN CORPUSCULAR HEMOGLOBIN 31.5 pg (27.0-33.4); MEAN CORPUSCULAR HGB CONC 34.6 g/dL (32.0-36.0); MEAN CORPUSCULAR VOLUME 91 fl (80-97); PLATELET COUNT 219 10^3/uL (150-450); RED BLOOD COUNT 4.03 10^6/uL (3.72-5.28); RED CELL DISTRIBUTION WIDTH 13.4 % (11.5-14.0); SEGMENTED NEUTROPHILS % (AUTO) 78.9 % (42-78); TOTAL CELLS COUNTED % (AUTO) 100 %; WHITE BLOOD COUNT 6.6 10^3/uL (4.0-10.5)
[2020-01-14 09:18] LABS: APPEARANCE,URINE CLEAR; BILIRUBIN,URINE NEGATIVE (NEGATIVE); COLOR,URINE YELLOW; GLUCOSE, URINE NEGATIVE (NEGATIVE); KETONES,URINE NEGATIVE (NEGATIVE); LEUKOCYTE ESTERASE,URINE SMALL (NEGATIVE); NITRITE,URINE NEGATIVE (NEGATIVE); PROTEIN,URINE NEGATIVE (NEGATIVE); UROBILINOGEN,URINE NEGATIVE mg/dL (<2.0)
[2020-01-14 09:23] LABS: ALKALINE PHOSPHATASE 56 U/L (38-126); ANION GAP 5 (5-19); ASPARTATE AMINO TRANSFERASE 27 U/L (14-36); BILIRUBIN,TOTAL 0.7 mg/dL (0.2-1.3); BLOOD UREA NITROGEN 25 mg/dL (7-20); CALCIUM 9.5 mg/dL (8.4-10.2); CARBON DIOXIDE 28 mmol/L (22-30); CHLORIDE 104 mmol/L (98-107); GLUCOSE 98 mg/dL (75-110); POTASSIUM 4.1 mmol/L (3.6-5.0); TOTAL PROTEIN 8.2 g/dL (6.3-8.2)
[2020-01-14 09:26] LABS: URINE AMPHETAMINES SCREEN NEGATIVE; URINE BARBITURATES SCREEN NEGATIVE; URINE BENZODIAZEPINES SCREEN NEGATIVE; URINE COCAINE SCREEN NEGATIVE; URINE MARIJUANA (THC) SCREEN NEGATIVE; URINE METHADONE SCREEN NEGATIVE; URINE PHENCYCLIDINE SCREEN NEGATIVE
--- NOTE | 2020-01-14 12:30 | ER Document Report ---
Entered by TIFFANIE DO SCRIBE 01/14/20 0832 Acting as scribe for:DOMENIC LOZOYA MD ED General - General Chief Complaint: Leg Pain Stated Complaint: LEG PAIN/BACK PAIN Time Seen by Provider: 01/14/20 07:24 Primary Care Provider: PATRICIA CROCKETT MD [Primary Care Provider] - Follow up as needed Information source: Patient Notes: This 64 year old female patient presents to the emergency department today with complaints of the back of her body feeling hot this morning when she was walking to use the bathroom. Patient states she has anxiety and recently had a panic attack. Patient has a history of hypertension and did not take her medication this morning. Patient states her blood pressure has also gone up. Patient states she walks with a cane and there is pain in her right knee. Patient states she has a cough and denies any fever, chills, or shortness of breath. TRAVEL OUTSIDE OF THE [place] IN LAST 30 DAYS: No - Related Data Allergies/Adverse Reactions: Penicillins Allergy (Verified 10/26/16 14:12) Past Medical History - General Information source: Patient - Social History Smoking Status: Never Smoker Cigarette use (# per day): No Lives with: Alone Family History: Hypertension Patient has suicidal ideation: No Patient has homicidal ideation: No - Past Medical History Cardiac Medical History: Reports: Hx Hypertension Malignancy Medical History: Reports: Hx Breast Cancer - abnormal left breast nodule. states unkown if cancerous Musculoskeletal Medical History: Reports Hx Arthritis - RA Psychiatric Medical History: Reports: Hx Anxiety Past Surgical History: Reports: Hx Breast Surgery, Hx Section, Hx Vascular Surgery - vein stripping - Immunizations Immunizations up to date: No Hx Diphtheria, Pertussis, Tetanus Vaccination: Yes Review of Systems - Review of Systems Constitutional: See HPI. denies: Chills, Fever EENT: No symptoms reported Cardiovascular: No symptoms reported Respiratory: See HPI, Cough. denies: Short of breath Gastrointestinal: No symptoms reported Genitourinary: No symptoms reported Female Genitourinary: No symptoms reported Musculoskeletal: See HPI, Other - Pain in right knee. Skin: No symptoms reported Hematologic/Lymphatic: No symptoms reported Neurological/Psychological: See HPI -: Yes All other systems reviewed and negative Physical Exam - Vital signs Vitals: Temp Pulse Resp BP Pulse Ox 98.6 F 105 H 18 210/77 H 96 01/14/20 07:16 01/14/20 07:16 01/14/20 07:16 01/14/20 07:16 01/14/20 07:16 - General General appearance: Appears well, Alert In distress: None - HEENT Head: Normocephalic, Atraumatic Eyes: Normal Pupils: PERRL Pharynx: Normal - Respiratory Respiratory status: No respiratory distress Chest status: Nontender Breath sounds: Normal Chest palpation: Normal - Cardiovascular Rhythm: Regular Heart sounds: Normal auscultation Murmur: No - Abdominal Inspection: Normal Distension: No distension Bowel sounds: Normal Tenderness: Nontender - Extremities General upper extremity: Normal inspection. No: Edema General lower extremity: Normal inspection. No: Edema - Neurological Neuro grossly intact: Yes Cognition: Normal Orientation: AAOx4 Speech: Normal - Psychological Associated symptoms: Normal affect, Normal mood - Skin Skin Temperature: Warm Skin Moisture: Dry Skin Color: Normal Course - Re-evaluation Re-evalutation: 01/14/20 12:27 Patient resting comfortable not showing any signs of distress at this time. - Vital Signs Vital signs: Temp Pulse Resp BP Pulse Ox 98.6 F 83 18 173/74 H 96 01/14/20 07:16 01/14/20 10:21 01/14/20 07:16 01/14/20 10:21 01/14/20 07:16 - Laboratory Result Diagrams: 01/14/20 08:43 01/14/20 08:43 Laboratory results interpreted by me: 01/14/20 01/14/20 01/14/20 08:43 08:43 08:43 Seg Neutrophils % 78.9 H BUN 25 H Ur Leukocyte Esterase SMALL H Laboratory results within normal limits. Urinalysis shows a small amount of leukocyte esterase. Discharge - Discharge Clinical Impression: Panic attack, Hypertension, Leg pain Condition: Stable Disposition: HOME, SELF-CARE Additional Instructions: Panic Attack The cause of panic attacks is unknown. Symptoms can include chest pain, shortness of breath, palpitations, sweats, and a sense of smothering or impending doom. In time, the panic attacks can lead to generalized anxiety and phobias. Because the symptoms can mimic heart attack, pulmonary embolism, and other serious diseases, the physician has evaluated you for these conditions. There is no evidence of a serious problem. An acute panic attack usually goes away by itself without treatment. A severe attack can be treated with medicine to calm you. Long-term, antidepressant medicines may help prevent attacks. Counselling can also be very beneficial in dealing with panic attacks. Panic attacks are less likely if you are getting regular exercise, proper diet, and plenty of sleep. It's normal for panic attacks to cause many frightening symptoms. However, you should call or return if your symptoms change significantly or if you are worsening. Forms: Elevated Blood Pressure Referrals: PATRICIA CROCKETT MD [Primary Care Provider] - Follow up as needed I personally performed the services described in the documentation, reviewed and edited the documentation which was dictated to the scribe in my presence, and it accurately records my words and actions.
[2020-01-14 12:43] VITALS: BP 197/75
== END 2020-01-14 12:43 | disposition home or self-care (01) ==
LOC: ER 07:00
DX: M25.561 Pain in right knee (principal); I10 Essential (primary) hypertension; F41.0 Panic disorder [episodic paroxysmal anxiety]; R05 Cough; Z88.0 Allergy status to penicillin
CPT/HCPCS: 99283; 36415; 82962; 85025; 80053; 81001; 80307; J3490

== ENCOUNTER → 2020-04-04 | Outpatient (CLI) | payer MEDICAID ==
--- NOTE | 2020-04-05 14:03 | WOMENS IMAGING REPORT ---
EXAM DESCRIPTION: 3D SCREENING MAMMO BILAT IMAGES COMPLETED DATE/TIME: 04/04/2020 2:14 pm REASON FOR STUDY: (Z12.31)ENCNTR SCREEN MAMMOGRAM FOR MALIGNANT NEOPLASM OF BREAST Z12.31 ENCNTR SC REEN MAMMOGRAM FOR MALIGNANT NEOPLASM OF ISHAAN COMPARISON: 12/15/2018 12/10/2017 EXAM PARAMETERS: Standard craniocaudal and mediolateral oblique views of each breast recorded using digital acquisition and breast tomosynthesis. Read with the assistance of CAD. .[facility] - [employer] Version 9.2 LIMITATIONS: None. FINDINGS: Findings present which are benign by mammographic criteria. No suspicious masses, calcific ations or architectural distortion. Pertinent benign findings: Postprocedural changes are seen of the left upper breast. Benign mammographic findings may include one or more of the following: Smooth masses, popcorn/rim/coa rse calcifications, asymmetries, post-procedure changes, and lesions with long-standing stability. IMPRESSION: BENIGN MAMMOGRAPHIC FINDINGS. BIRADS 2 BREAST DENSITY: b. There are scattered areas of fibroglandular density. BIRAD: ASSESSMENT: 2 BENIGN FINDING(S) RECOMMENDATION: ROUTINE SCREENING COMMENT: The patient has been notified of the results by letter per MQSA requirements. Additional no tification policies are in place for contacting patient with suspicious or incomplete findings. Quality ID #225: The [employer] recommends an annual screening mammogram for women aged 40 years or over. This facility utilizes a reminder system to ensure that all patients receive reminder letters, and/or direct phone calls for appointments. This includes reminders for routine scr eening mammograms, diagnostic mammograms, or other Breast Imaging Interventions when appropriate. Th is patient will be placed in the appropriate reminder system. TECHNICAL DOCUMENTATION: FINDING NUMBER: (1) ASSESSMENT: (1) JOB ID: [id number] 2010 [employer] All Rights Reserved Reading location - IP/workstation name: [email or web address]
== END ==
LOC: WI 13:37
PROVIDERS: ATTEND Physician Assistant
DX: Z12.31 Encounter for screening mammogram for malignant neoplasm of breast (principal)
CPT/HCPCS: 77063; 77067

== ENCOUNTER 2020-08-15 10:28 | Emergency (ER) | payer MEDICAID ==
--- NOTE | 2020-08-15 11:17 | ER Document Report ---
ED Medical Screen (RME) - General Chief Complaint: General Weakness Stated Complaint: WEAKNESS Time Seen by Provider: 08/15/20 11:12 Primary Care Provider: PATRICIA CROCKETT MD [Primary Care Provider] - Follow up as needed Mode of Arrival: Wheelchair Information source: Patient Notes: 64-year-old female presented to ED for complaint of generalized weakness. When she did get her her blood pressure was elevated. She states she is on blood pressure medicine and she took it this morning. She states she is on 2 different kinds of blood pressure medicines. Denies any other symptoms except for the weakness dizziness. She states it started about an hour before coming to the emergency room. And is very anxious about the blood pressure at this time. Blood pressure on the left arm was 182/84. We will get blood urine EKG and have her reexamined. I have greeted and performed a rapid initial assessment of this patient. A comprehensive ED assessment and evaluation of the patient, analysis of test results and completion of medical decision making process will be conducted by an additional ED providers. TRAVEL OUTSIDE OF THE [place] IN LAST 30 DAYS: No - Related Data Allergies/Adverse Reactions: Penicillins Allergy (Verified 08/15/20 11:12) Past Medical History - Past Medical History Cardiac Medical History: Reports: Hx Hypertension Renal/ Medical History: Denies: Hx Peritoneal Dialysis Malignancy Medical History: Reports: Hx Breast Cancer - abnormal left breast nodule. states unkown if cancerous Musculoskeltal Medical History: Reports Hx Arthritis - RA Psychiatric Medical History: Reports: Hx Anxiety Past Surgical History: Reports: Hx Breast Surgery, Hx Section, Hx Vascular Surgery - vein stripping - Immunizations Immunizations up to date: No Hx Diphtheria, Pertussis, Tetanus Vaccination: Yes Physical Exam - Vital signs Vitals: Temp Pulse Resp BP Pulse Ox 98.2 F 70 16 233/80 H 100 08/15/20 10:37 08/15/20 10:37 08/15/20 10:37 08/15/20 10:37 08/15/20 10:37 Course - Vital Signs Vital signs: Temp Pulse Resp BP Pulse Ox 98.2 F 70 16 233/80 H 100 08/15/20 10:37 08/15/20 10:37 08/15/20 10:37 08/15/20 10:37 08/15/20 10:37 Doctor's Discharge - Discharge Referrals: PATRICIA CROCKETT MD [Primary Care Provider] - Follow up as needed
[2020-08-15 11:54] LABS: ABSOLUTE EOSINOPHILS # (AUTO) 0.2 10^3/uL (0.0-0.6); ABSOLUTE LYMPHOCYTES (AUTO) 1.1 10^3/uL (0.5-4.7); ABSOLUTE MONOCYTES (AUTO) 0.3 10^3/uL (0.1-1.4); ABSOLUTE NEUT (AUTO) 2.9 10^3/uL (1.7-8.2); BASOPHILS % (AUTO) 0.6 % (0-2); EOSINOPHILS % (AUTO) 3.4 % (0-6); HEMATOCRIT 35.2 % (36.0-47.0); HEMOGLOBIN 11.8 g/dL (12.0-15.5); LYMPHOCYTES % (AUTO) 24.8 % (13-45); MEAN CORPUSCULAR HEMOGLOBIN 30.8 pg (27.0-33.4); MEAN CORPUSCULAR HGB CONC 33.6 g/dL (32.0-36.0); MEAN CORPUSCULAR VOLUME 92 fl (80-97); MONOCYTES % (AUTO) 7.3 % (3-13); PLATELET COUNT 192 10^3/uL (150-450); RED BLOOD COUNT 3.84 10^6/uL (3.72-5.28); RED CELL DISTRIBUTION WIDTH 12.5 % (11.5-14.0); SEGMENTED NEUTROPHILS % (AUTO) 63.9 % (42-78); TOTAL CELLS COUNTED % (AUTO) 100 %; WHITE BLOOD COUNT 4.5 10^3/uL (4.0-10.5)
[2020-08-15 12:03] LABS: ALBUMIN 3.9 g/dL (3.5-5.0); ALKALINE PHOSPHATASE 47 U/L (38-126); ANION GAP 6 (5-19); ASPARTATE AMINO TRANSFERASE 28 U/L (14-36); BILIRUBIN,DIRECT 0.1 mg/dL (0.0-0.4); BILIRUBIN,TOTAL 0.6 mg/dL (0.2-1.3); BLOOD UREA NITROGEN 16 mg/dL (7-20); CALCIUM 9.6 mg/dL (8.4-10.2); CARBON DIOXIDE 31 mmol/L (22-30); CHLORIDE 103 mmol/L (98-107); GLUCOSE 91 mg/dL (75-110); POTASSIUM 4.2 mmol/L (3.6-5.0)
--- NOTE | 2020-08-15 12:13 | RADIOLOGY REPORT (SQ) ---
EXAM DESCRIPTION: CHEST 2 VIEWS IMAGES COMPLETED DATE/TIME: 08/15/2020 11:44 am REASON FOR STUDY: Elevated blood pressure with headache and dizziness COMPARISON: 11/18/2017 EXAM PARAMETERS: NUMBER OF VIEWS: two views TECHNIQUE: Digital Frontal and Lateral radiographic views of the chest acquired. RADIATION DOSE: NA LIMITATIONS: none FINDINGS: LUNGS AND PLEURA: No opacities, masses or pneumothorax. No pleural effusion. MEDIASTINUM AND HILAR STRUCTURES: No masses or contour abnormalities. HEART AND VASCULAR STRUCTURES: The heart size is borderline. There is no pulmonary edema. BONES: No acute findings. HARDWARE: None in the chest. OTHER: No other significant finding. IMPRESSION: Borderline cardiomegaly without pulmonary edema. COMMENT: 18 TECHNICAL DOCUMENTATION: JOB ID: [id number] 2010 [employer]- All Rights Reserved Reading location - IP/workstation name: [email or web address]
[2020-08-15 13:57] VITALS: BP 200/89
--- NOTE | 2020-08-15 14:16 | ER Document Report ---
ED General - General Chief Complaint: General Weakness Stated Complaint: WEAKNESS Time Seen by Provider: 08/15/20 11:12 Primary Care Provider: PATRICIA CROCKETT MD [Primary Care Provider] - Follow up as needed Mode of Arrival: Wheelchair TRAVEL OUTSIDE OF THE [place] IN LAST 30 DAYS: No - HPI Context: This is a 64-year-old female with a history of hypertension presenting to the emergency department complaining of generalized weakness x1 hour. Patient devin es headache, visual changes, loss of sense of taste or loss of sense of smell, chest pain, shortness of breath, abdominal pain, urinary symptoms, focal motor weakness or deficit. Patient states "I just feel weak." Patient denies history of COVID-19 infection, known exposure to COVID-19 positive patients or patients under investigation for COVID-19 infection. Patient denies anything that alleviates her pain but feels that anxiety makes her symptoms worse. Patient also noted that she feels very anxious because her blood pressure is elevated compared to her normal pressure. Blood pressure reading in triage was 182/84. Patient denies dysuria, flank pain, urinary frequency. Associated symptoms: Other - See HPI Exacerbated by: Other - See HPI Relieved by: Other - See HPI Similar symptoms previously: Yes Recently seen / treated by doctor: No - Related Data Allergies/Adverse Reactions: Penicillins Allergy (Verified 08/15/20 11:12) Past Medical History - General Information source: Patient - Social History Smoking Status: Current Every Day Smoker Frequency of alcohol use: None Drug Abuse: None Family History: Reviewed & Not Pertinent, Hypertension Patient has suicidal ideation: No Patient has homicidal ideation: No - Past Medical History Cardiac Medical History: Reports: Hx Hypertension Renal/ Medical History: Denies: Hx Peritoneal Dialysis Malignancy Medical History: Reports: Hx Breast Cancer - abnormal left breast nodule. states unkown if cancerous Musculoskeletal Medical History: Reports Hx Arthritis - RA Psychiatric Medical History: Reports: Hx Anxiety Past Surgical History: Reports: Hx Breast Surgery, Hx Section, Hx Vascular Surgery - vein stripping - Immunizations Immunizations up to date: No Hx Diphtheria, Pertussis, Tetanus Vaccination: Yes Review of Systems - Review of Systems Constitutional: Weakness EENT: No symptoms reported Cardiovascular: No symptoms reported Respiratory: No symptoms reported Gastrointestinal: No symptoms reported Genitourinary: No symptoms reported Female Genitourinary: No symptoms reported Musculoskeletal: No symptoms reported Skin: No symptoms reported Hematologic/Lymphatic: No symptoms reported Neurological/Psychological: Anxiety -: Yes All other systems reviewed and negative Physical Exam - Vital signs Vitals: Temp Pulse Resp BP Pulse Ox 98.2 F 70 16 233/80 H 100 08/15/20 10:37 08/15/20 10:37 08/15/20 10:37 08/15/20 10:37 08/15/20 10:37 - Notes Notes: CONSTITUTIONAL [Vital signs reviewed, Patient appears comfortable, Alert and oriented X 3, Normal stature.] HEAD [Atraumatic, Normocephalic.] EYES [Eyes are normal to inspection, No discharge from eyes, Extraocular muscles intact, Sclera are normal, Conjunctiva are normal.] ENT [External ears normal to inspection, Nose examination normal NECK [Normal ROM, No jugular venous distention, No meningeal signs, no carotid bruit.] RESPIRATORY CHEST [Chest is nontender, Breath sounds normal, No respiratory distress.] CARDIOVASCULAR [RRR, No murmurs, Normal S1 S2, No rub, No gallop.] ABDOMEN [Abdomen is nontender, No pulsatile masses, No other masses, Bowel sounds normal, No distension, No peritoneal signs, No hernias.] BACK [There is no CVA Tenderness, There is no tenderness to palpation, Normal inspection.] UPPER EXTREMITY [Inspection normal, No cyanosis, No clubbing, No edema LOWER EXTREMITY [Inspection normal, No cyanosis, No clubbing, No edema, No calf tenderness NEURO [No focal motor deficits, No focal sensory deficits, Speech normal.] SKIN [Skin is warm, Skin is dry, Skin is normal color.] PSYCHIATRIC [Anxious affect. ] Course - Re-evaluation Re-evalutation: 08/15/20 14:26 During examination patient's systolic pressure was noted to go from 222 down to [address] down to 136. 08/15/20 15:44 Results of ED MSE discussed with patient. Conversation with Dr. Crockett about the patient's episodes of anxiety and how they seem to elevate her blood pressure di scussed with patient also. Dr. Crockett recommended starting the patient on BuSpar 5 mg p.o. every 8 hours and stated he would see her 08/19/2020 at 10 AM. All questions were answered prior to discharge. Emergency signs and symptoms, reasons to return to the emergency department discussed with patient. - Vital Signs Vital signs: Temp Pulse Resp BP Pulse Ox 98.2 F 70 20 200/89 H 100 08/15/20 10:37 08/15/20 10:37 08/15/20 13:01 08/15/20 13:01 08/15/20 13:01 - Laboratory Result Diagrams: 08/15/20 11:22 08/15/20 11:22 Laboratory results interpreted by me: 08/15/20 08/15/20 11:22 11:22 Hgb 11.8 L Hct 35.2 L Carbon Dioxide 31 H - Diagnostic Test Radiology reviewed: Reports reviewed - EKG Interpretation by Me Additional EKG results interpreted by me: 08/15/20 14:28 EKG obtained on 08/15/2020 at 1129 hrs. was interpreted by this MD. Findings: Sinus bradycardia, rate of rate 59, normal axis, [place] interval within normal limits, P waves preceding QRS complexes, QRS complex appears narrow, QTC is 420, there are no obvious patterns of ST segment elevation, depression or reciprocal changes seen to suggest acute myocardial ischemia or infarction. Comparison with prior EKG from 11/22/2017 reveals no acute changes, gross morphology is basically the same for both EKGs. Impression sinus bradycardia with nonspecific ST segments. Discharge - Discharge Clinical Impression: Anxiety, Weakness Condition: Stable Disposition: HOME, SELF-CARE Additional Instructions: Return to the Emergency Department without delay if any worse. HOME CARE INSTRUCTIONS & INFORMATION: Thank you for choosing us for your medical needs. We hope you're satisfied with the care you received. After you leave, you must properly care for your problem and, at the same time, observe its progress. Any condition can change. Some illnesses can change rapidly over hours or days. If your condition worsens, return to the Emergency Department or see your physician promptly. ABOUT YOUR X-RAYS AND EKG'S: If you had an EKG or X-rays taken, they have been read by the Emergency Physician. The X-rays and EKG's will also be read by a Ra diologist or Kitchen Utility Associate within 24 hours. If discrepancies are noted, you will be notified by telephone. Please be certain the ED has a correct telephone number & address where you can be reached. Also, realize that some fractures or abnormalities do not show up on initial X-rays. If your symptoms continue, see your physician. ABOUT YOUR LABORATORY TEST: If you had laboratory tests, the results have been reviewed by the Emergency Physician. Some test results (for example cultures) may not be available for several days. You will be contacted if any test result shows you need additional treatment. Please be certain the ED has a correct telephone number and address where you can be reached. ABOUT YOUR MEDICATIONS: You will receive instructions on how to take your medicine on the prescription label you receive. Additional information may be provided by the Pharmacy. If you have questions afterwards, call the ED for clarification or further instructions. Some prescribed medications may cause drowsiness. Do not perform tasks such as driving a car or operating machinery without consulting your Pharmacist. If you feel you need a refill of pain medication, your condition will need re-evaluation. Please do not call for a refill of any medication. ABOUT YOUR SIGNATURE: Signature of this document acknowledges to followin. Understanding that you received emergency treatment and that you may be released before al medical problems are known or treated. Please be certain the ED has a correct phone number & address where you can be reached. 2. Acknowledgement that you will arrange for follow-up care as recommended. 3. Authorization for the Emergency Physician to provide information to your follow-up Physician in order to maximize your care. AT ANY TIME, IF YOUR SYMPTOMS CHANGE SIGNIFICANTLY OR WORSEN OR YOU DEVELOP NEW SYMPTOMS, RETURN TO THE EMERGENCY DEPARTMENT IMMEDIATELY FOR RE-EVALUATION. OUR GOAL IS TO PROVIDE EXCELLENT MEDICAL CARE! WE HOPE THAT WE HAVE MET YOUR EXPECTATIONS DURING YOUR EMERGENCY DEPARTMENT VISIT AND THAT YOU FEEL YOU HAVE RECEIVED EXCELLENT CARE! Anxiety The physician feels that some of your health problems are being caused by anxiety. Anxiety affects your health in many ways. Anxiety alone can cause palpitations, sweats, chest pains, abdominal pains, shortness of breath, and headaches. It contributes to ulcer disease, high blood pressure, irritable bowel syndrome, and has been shown to cause flare-ups of many other diseases. Anxiety is not a simple disorder to treat. If the anxiety is due to recent life stresses, you may simply need time to "work through" the changes. If the anxiety is due to an underlying unhappiness with yourself or due to psychiatric disturbance, professional help will be needed. Your physician can refer you for further help if needed. Anti-anxiety medication is occasionally given if the stress is acute or if you are having trouble sleeping. Chronic or frequent use of these medications is not a good idea because the body becomes reliant on it, preventing you from dealing with life's normal stresses. Prescriptions: Buspirone HCl 1 tab PO TID 14 Days #42 tab Referrals: PATRICIA CROCKETT MD [Primary Care Provider] - 08/19/20
--- NOTE | 2020-08-16 00:37 | EKG REPORT ---
SEVERITY:- BORDERLINE ECG - SINUS RHYTHM PROBABLE LEFT ATRIAL ABNORMALITY BORDERLINE ST ELEVATION, ANTEROLATERAL LEADS : Confirmed by: Fior Mixon 16-Aug-2020 00:36:27
--- OUTSIDE RECORDS SUMMARY | 2020-08-16 15:26 | XMS REPORT ---
:1955 [facility] [place] [address] [place] [id number] Care Team Providers Name Role Phone CROCKETT Primary Care Physician Unavailable Michael Castillo Attending Clinician Unavailable EMERGENCY Attending Clinician Unavailable EMERGENCY Admitting Clinician Unavailable Gio Unavailable Unavailable Roro Triplett Jr. Unavailable Allergies, Adverse Reactions, Alerts Allergy Name Allergy Status Severity Reaction(s) Onset Inactive Treat ing Comments Type Date Date Clinician Fentanyl Propensity Active Shortness of to adverse Breath 4-20 reactions 00:00: to drug 00 Penicillins Propensity Active Severe Itching to adverse 4-20 reactions 00:00: to drug 00 Lisinopril Lisinopril Active *ANTIHYPERTE *ANTIHYPERT NSIVES* ENSIVES* Penicillins Penicillins Active HEMA Allergy to Active Inhibitors Drug (NDFRT: (Finding) Acetaminophe n) Penicillins Allergy to Active Drug (Finding) Medications Ordered Filled Start Stop Current Ordering Indication Dosage Frequency Signature Comments Components Medication Medication Date Date Medication? Clinician (SIG) Name Name amLODIPine 2018-10 Yes QD amLODIPine Besylate 0-30 Besylate 2.5 MG Oral 14:30: 2.5 MG Tablet 27 Oral Tablet daily (2.5 MG) Active Metoprolol 2018-10 Yes Metoprolol Succinate 0-30 Succinate ER 100 MG 14:30: ER 100 MG Oral Tablet 27 Oral Extended Tablet Release 24 Extended Hour Release 24 Hour (100 MG) Active OxyMORphone 2018-10 Yes OxyMORphon HCl ER 20 0-30 e HCl ER MG Oral 14:30: 20 MG Oral Tablet 27 Tablet Extended Extended Release 12 Release 12 Hour Hour (20 MG) Active Sertraline 2018-10 Yes Sertraline HCl 100 MG 0-30 HCl 100 MG Oral Tablet 14:30: Oral 27 Tablet (100 MG) Active Triamterene 2018-10 Yes Triamteren -HCTZ 0-30 e-HCTZ 37.5-25 MG 14:30: 37.5-25 MG Oral Tablet 27 Oral Tablet (37.5-25 MG) Active metoprolol Yes 50mg QD Take 50 mg succinate 4-20 by mouth XL 15:24: daily. (TOPROL-XL) 07 50 mg Oral Tablet Sustained Release 24HR oxyCODONE 2019- No 10mg 10 mg, (ROXICODONE 01-21 Oral, ED ) immediate 13:55: 14:02 ONCE, Sat release 00 :00 01/21/19 at tablet 10 1355, For mg 1 dose
FA LL RISK MEDICATION .
lidocaine 2019- No 1{patch 1 Patch, (LIDODERM) 01-21 } Transderma 5 % patch 1 13:40: 02:01 l, Patch 00 :00 Administer over 12 Hours, ED ONCE, 01/21/19 at 1340, For 1 dose
Ap ply to intact skin at source of pain for 12 hours, then remove. Wait 12 hours to apply next patch. Patch may be cut to size prior to removal of release liner.&nbs p;If patch contains metal, remove patch PRIOR to MRI.
lidocaine Yes 1{patch Q24H 1 Patch by (LIDODERM) 01-21 } Transderma 5 % Topical 00:00: l route Adhesive 00 every 24 Patch, hours. Medicated oxyCODONE-a 2019- No 1{tbl} Q6H Take 1 Tab cetaminophe 01-21- by mouth n 00:00: 23:59 every 6 (PERCOCET) 00 :00 hours as 5-325 mg needed for Oral Tablet Pain for up to 2 days. 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 Acute pain Acute pain Problem Active Gio, of left of left Rema knee knee Anxiety Anxiety Problem Active Gio, Rema Arthritis Arthritis Problem Active Gio, Rema Arthrofibro Arthrofibro Problem Active Francisc o, sis of sis of Rema total knee total knee arthroplast arthroplast y, initial y, initial encounter encounter Cancer Cancer Problem Active Gio, Rema Hypertensio Hypertensio Problem Active Francisc o, n n Rema Instability Instability Problem Active Bow[place], of internal of internal [place] left knee left knee prosthesis, prosthesis, initial initial encounter encounter Procedures Procedure Date / Time Performed Performing Clinician Pipo trimble XRAY KNEE 1-2 VIEWS LEFT 2019-01-21 16:37:42 Memo Fontana LT TKA LUCY 2017-07-27 00:00:00 Rema Powers Total knee replacement status, left 2017-06-30 00:00:00 Rema Collazo breast biopsy 2015-10-04 00:00:00 section Vein stripping on the right leg Left Breast lumpectomy bilateral knee replacements Breast Cancer Lump Removal - Left Eleni Powers Results Test Description Test Time Test Comments Text Results Atomic Results Result Comments XRAY KNEE 1-2 VIEWS 2019-01-21 12:49:00 Findings/Impre ssion:1. Postsurgical LEFT changes of long stem left kn ee arthroplasty. Hardware appea rs intact without significant peripros thetic lucency.2. Mild thickening o f the posterior femoral cortex adj acent to the femoral prosthetic tip, with possible tiny linear lucency at the cortical surface, raising th e possibility of nondisplaced stress/insufficiency fractur e. Consider follow-up.3. No dislocation or additional acute fracture id entified.4. No definite joint effusion. Report dictated by Mahad Posadas Reading Doctor: Magnus Ramirez [facility] Signature by: Magnus Ramirez Examination: XRAY KNEE 1-2 V IEWS LEFT Indication:Pain has had knee replacement and revision of lt knee. Now unable to bear weight. C omparison: None. Interface, Radresults_ Incoming - 01/21/2019 12:52 PM EDTExami nation: XRAY KNEE 1-2 VIEWS LEFT Ind ication: Pain has had knee replacemen t and revision of lt knee. Now jevon ble to bear weight. Comparison: None. IM PRESSION Findings/Impression: 1. Post surgical changes of long stem left kn ee arthroplasty. Hardware appea rs intact without significant peripros thetic lucency. 2. Mild thickening of the posterior femoral cortex adj acent to the femoral prosthetic tip, with possible tiny linear lucency at the cortical surface, raising th e possibility of nondisplaced stress/insufficiency fractur e. Consider follow-up. 3. No dislocation or additional acute fracture id entified. 4. No definite joint effusio n. Report dictated by Mahad Posadas Reading Doctor: Magnus Ramirez [facility] Signature by: Magnus Ramirez Creatinine 2016-07-09 14:41:00 Test Item Value Reference Range Comments Creatinine (test code = Creatinine) 1.0000 mg/dL 0.5000-1.200 0 Cr Clearance (Est) (test code = Cr Clearance 84.0500 75. 0000-115.0000 (Est)) Glucose (test code = Glucose) 106.0000 mg/dL 70.0000-118.0000 BUN (test code = BUN) 17.0000 mg/dL 7.0000-22.0000 Sodium (test code = Sodium) 140.0000 mmol/L 128.0000-145.0000 Potassium (test code = Potassium) 3.3000 mmol/L 3.6000-5.1000 Chloride (test code = Chloride) 103.0000 mmol/L 96.0000-108.0000 CO2 (test code = CO2) 30.0000 mmol/L 18.0000-33.0000 Calcium (test code = Calcium) 9.3900 mg/dL 8.0000-10.3000 Alkaline Phosphatase (test code = Alkaline 56.0000 42.00 00-141.0000 Phosphatase) ALT (SGPT) (test code = ALT (SGPT)) 7.0000 10.0000-47.0 000 AST (SGOT) (test code = AST (SGOT)) 12.0000 11.0000-37.0 000 Bilirubin, Total (test code = Bilirubin, Total) 0.5000 mg/dL 0.0000-1.6000 Albumin (test code = Albumin) 3.9000 g/dL 3.5000-5.5000 Protein, Total (test code = Protein, Total) 7.8000 g/dL 6.40 00-8.1000 [id number] 14:40:00 Test Item Value Reference Range Comments WBC (test code = WBC) 3.6000 4.0000-10.0000 Lymphocytes % (test code = Lymphocytes %) 20.1000 % 22.400 0-43.6000 MID% (test code = MID%) 7.1000 % 1.2000-11.2000 Neutrophils % (test code = Neutrophils %) 72.8000 % 48.900 0-69.9000 Lymphocytes (test code = Lymphocytes) 0.7000 1.2000-3.2 000 MID (test code = MID) 0.3000 0.1000-1.1000 Neutrophils (test code = Neutrophils) 2.6000 1.5000-6.7 000 RBC (test code = RBC) 3.6500 3.7000-4.9000 HGB (test code = HGB) 11.0000 g/dL 11.2000-14.4000 HCT (test code = HCT) 34.0000 % 34.0000-44.0000 MCV (test code = MCV) 93.2000 fL 80.0000-94.0000 MCH (test code = MCH) 30.3000 pg 27.0000-34.0000 MCHC (test code = MCHC) 32.5000 g/dL 31.5000-36.0000 RDW (test code = RDW) 14.9000 11.0000-18.0000 PLT (test code = PLT) 194.0000 140.0000-440.0000 MPV (test code = MPV) 8.0000 fL 6.8000-10.6000 [id number] 14:26:00 Test Item Value Reference Range Comments FSH (test code = FSH) 57.8000 1.5000-116.3000 LH (test code = LH) 43.8000 0.5000-76.3000 Estradiol (test code = Estradiol) 12.8000 pg/mL [id number] 12:16:00 Test Item Value Reference Range Comments WBC (test code = WBC) 6.4000 4.0000-10.0000 Lymphocytes % (test code = Lymphocytes %) 11.8000 % 22.400 0-43.6000 MID% (test code = MID%) 5.3000 % 1.2000-11.2000 Neutrophils % (test code = Neutrophils %) 82.9000 % 48.900 0-69.9000 Lymphocytes (test code = Lymphocytes) 0.7000 1.2000-3.2 000 MID (test code = MID) 0.4000 0.1000-1.1000 Neutrophils (test code = Neutrophils) 5.3000 1.5000-6.7 000 RBC (test code = RBC) 3.8600 3.7000-4.9000 HGB (test code = HGB) 11.6000 g/dL 11.2000-14.4000 HCT (test code = HCT) 35.2000 % 34.0000-44.0000 MCV (test code = MCV) 91.2000 fL 80.0000-94.0000 MCH (test code = MCH) 30.0000 pg 27.0000-34.0000 MCHC (test code = MCHC) 32.9000 g/dL 31.5000-36.0000 RDW (test code = RDW) 14.4000 11.0000-18.0000 PLT (test code = PLT) 207.0000 140.0000-440.0000 MPV (test code = MPV) 8.1000 fL 6.8000-10.6000 [id number] 12:16:00 Test Item Value Reference Range Comments Creatinine (test code = Creatinine) 0.9000 mg/dL 0.5000-1.200 0 Cr Clearance (Est) (test code = Cr 96.2100 75.0000-115.0 000 Clearance (Est)) Glucose (test code = Glucose) 96.0000 mg/dL 70.0000-118.0000 BUN (test code = BUN) 19.0000 mg/dL 7.0000-22.0000 Sodium (test code = Sodium) 140.0000 mmol/L 128.0000-145.0000 Potassium (test code = Potassium) 3.4000 mmol/L 3.6000-5.1000 Chloride (test code = Chloride) 101.0000 mmol/L 96.0000-108.0000 CO2 (test code = CO2) 31.0000 mmol/L 18.0000-33.0000 Calcium (test code = Calcium) 8.9300 mg/dL 8.0000-10.3000 Alkaline Phosphatase (test code = Alkaline 49.0000 42.00 00-141.0000 Phosphatase) ALT (SGPT) (test code = ALT (SGPT)) 7.0000 10.0000-47.0 000 AST (SGOT) (test code = AST (SGOT)) 11.0000 11.0000-37.0 000 Bilirubin, Total (test code = Bilirubin, 0.6000 mg/dL 0.0000- 1.6000 Total) Albumin (test code = Albumin) 3.9000 g/dL 3.5000-5.5000 Protein, Total (test code = Protein, 7.8000 g/dL 6.4000-8.10 00 Total) CBC WITH DIFFERENTIAL/PLATELET Test Item Value Reference Range Comments WBC (test code = 6690-2) 5.1 X10E3/UL 3.4-10.8 RBC (test code = 789-8) 4.17 X10E6/UL 3.77-5.28 HEMOGLOBIN (test code = 718-7) 13 G/DL 11.1-15.9 HEMATOCRIT (test code = 4544-3) 38.5 % 34.0-46.6 MCV (test code = 787-2) 92 FL 79-97 MCH (test code = 785-6) 31.2 PG 26.6-33.0 MCHC (test code = 786-4) 33.8 G/DL 31.5-35.7 RDW (test code = 788-0) 12.5 % 11.7-15.4 PLATELETS (test code = 777-3) 211 X10E3/UL 150-450 NEUTROPHILS (test code = 770-8) 58 % LYMPHS (test code = 736-9) 28 % MONOCYTES (test code = 5905-5) 10 % EOS (test code = 713-8) 3 % BASOS (test code = 706-2) 1 % NEUTROPHILS (ABSOLUTE) (test code = 751-8) 3 X10E3/UL 1.4-7 .0 LYMPHS (ABSOLUTE) (test code = 731-0) 1.4 X10E3/UL 0.7-3.1 MONOCYTES(ABSOLUTE) (test code = 742-7) .5 X10E3/UL 0.1-0.9 EOS (ABSOLUTE) (test code = 711-2) .2 X10E3/UL 0.0-0.4 BASO (ABSOLUTE) (test code = 704-7) 0 X10E3/UL 0.0-0.2 IMMATURE GRANULOCYTES (test code = 98710-7) 0 % IMMATURE GRANS (ABS) (test code = 36586-4) 0 X10E3/UL 0.0-0 .1 COMP. METABOLIC PANEL (14) Test Item Value Reference Range Comments GLUCOSE (test code = 2345-7) 91 MG/DL 65-99 BUN (test code = 3094-0) 23 MG/DL 8-27 CREATININE (test code = 2160-0) .92 MG/DL 0.57-1.00 EGFR IF NONAFRICN AM (test code = 80194-3) 67 ML/MIN/1.73 >59 EGFR IF AFRICN AM (test code = 21592-4) 77 ML/MIN/1.73 >59 BUN/CREATININE RATIO (test code = 3097-3) 25 12-28 SODIUM (test code = 2951-2) 140 MMOL/L 134-144 POTASSIUM (test code = 2823-3) 4.4 MMOL/L 3.5-5.2 CHLORIDE (test code = 2075-0) 102 MMOL/L 96-106 CARBON DIOXIDE, TOTAL (test code = 2027-9) 27 MMOL/L 20-29 CALCIUM (test code = 94083-7) 9.8 MG/DL 8.7-10.3 PROTEIN, TOTAL (test code = 2885-2) 8.2 G/DL 6.0-8.5 ALBUMIN (test code = 1751-7) 4.3 G/DL 3.8-4.8 GLOBULIN, TOTAL (test code = 26287-9) 3.9 G/DL 1.5-4.5 A/G RATIO (test code = 1759-0) 1.1 1.2-2.2 BILIRUBIN, TOTAL (test code = 1975-2) .6 MG/DL 0.0-1.2 ALKALINE PHOSPHATASE (test code = 6768-6) 51 IU/L 39-117 AST (SGOT) (test code = 1920-8) 19 IU/L 0-40 ALT (SGPT) (test code = 1742-6) 17 IU/L 0-32 LIPASE Test Item Value Reference Range Comments LIPASE (test code = 3040-3) 31 U/L 14-72 Encounters Start End Encounter Admission Attending Care Care Encounter Date/Time Date/Time Type Type Clinicians Facility Department ID 2020-06-26 2020-06-26 Outpatient [facility] [id number] 00:00:00 00:00:00 rn [facility] [place] 2020-04-04 2020-04-04 Outpatient [facility] [id number] 00:00:00 00:00:00 rn [facility] [place] 2020-03-26 2020-03-26 Outpatient Michael [facility] [id number] 00:00:00 00:00:00 Cate yarbrough [facility] [place] 2019-10-25 2019-10-25 Outpatient Mcihael [facility] [id number] 00:00:00 00:00:00 Cate yarbrough [facility] [place] 2019-09-20 2019-09-20 Outpatient Michael [facility] [id number] 00:00:00 00:00:00 Cate yarbrough [facility] [place] 2019-09-19 2019-09-19 Outpatient Michael [facility] [id number] 00:00:00 00:00:00 Cate yarbrough [facility] [place] 2019-08-02 2019-08-07 Post-Op Uziel Triplett [id number] 13:40:00 07:20:12 Office Orthopedic Orthopaedics Visit alfredito JIMÉNEZ 2019-05-04 2019-05-04 Outpatient [facility] [id number] 00:00:00 00:00:00 linnea [facility] [place] 2019-04-05 2019-04-05 [id number] 00:00:00 Bruna Esposito rn [facility] [place] 2019-03-22 2019-03-22 Outpatient Michael [facility] [id number] 00:00:00 00:00:00 Cate yarbrough [facility] [place] 2019-03-20 2019-03-20 Outpatient Michael [facility] [id number] 00:00:00 00:00:00 Cate yarbrough [facility] [place] 2019-03-01 2019-03-01 Outpatient [facility] [id number] 00:00:00 00:00:00 rn [facility] 2019-02-22 2019-02-22 Outpatient Rodrigo Allen [id number] 00:00:00 00:00:00 rn [facility] 2019-01-21 2019-01-22 Emergency [facility] [id number] 11:53:03 15:24:00 2019-01-21 2019-01-21 Emergency X EMERGENCY, [facility] [id number] 11:53:03 11:53:03 ATTENDING 2018-12-20 2018-12-20 Outpatient Rodrigo Allen [id number] 00:00:00 00:00:00 rn [facility] 2018-12-15 2018-12-15 Outpatient Jamesone Tiffany [id number] 00:00:00 00:00:00 rn [facility] 2018-11-30 2018-11-30 Outpatient Rodrigo Allen [id number] 00:00:00 00:00:00 rn [facility] 2018-08-31 2018-08-31 Outpatient Rodrigo Allen [id number] 00:00:00 00:00:00 rn [facility] 2017-03-02 2017-03-02 Outpatient Jamesone Tiffany [id number] 00:00:00 00:00:00 rn [facility] 2017-02-19 2017-02-19 Outpatient Rodrigo Allen [id number] 00:00:00 00:00:00 rn [facility] 2017-02-03 2017-02-03 Outpatient Rodrigo Allen [id number] 00:00:00 00:00:00 rn [facility] 2016-10-22 2016-10-22 Outpatient Jamesone Tiffany [id number] 00:00:00 00:00:00 rn [facility] 2016-10-14 2016-10-14 Outpatient Southeaste Tiffany [id number] 00:00:00 00:00:00 rn [facility] On[facility] 2016-10-07 2016-10-07 Outpatient Southe[facility] Tiffany [id number] 00:00:00 00:00:00 rn [facility] On[facility] Oncology Center [facility] 2016-07-30 2016-07-30 Outpatient Jamesone Tiffany [id number] 00:00:00 00:00:00 rn [facility] On[facility] Oncology [facility] Center 2016-07-29 2016-07-29 Outpatient Sout[facility] Tiffany [id number] 00:00:00 00:00:00 rn [facility] On[facility] Oncology [facility] Center 2016-07-16 2016-07-16 Outpatient Rodrigo Allen [id number] 00:00:00 00:00:00 rn [facility] Oncology Oncology [facility] 2016-07-10 2016-07-10 Outpatient Rodrigo Allen [id number] 00:00:00 00:00:00 rn [facility] Oncology Oncology [facility] 2016-07-09 2016-07-09 Rodrigo Donis 20 [id number] 00:00:00 00:00:00 Bruna rn Medical Medical Oncology Oncology Center [facility] 2016-07-06 2016-07-06 Outpatient Rodrigo Allen [id number] 00:00:00 00:00:00 rn [facility] Oncology Oncology [facility] 2016-07-02 2016-07-02 Outpatient Rodrigo Allen [id number] 00:00:00 00:00:00 rn [facility] Oncology Oncology [facility] 2016-04-14 2016-04-14 Outpatient Rodrigo Allen [id number] 00:00:00 00:00:00 rn [facility] Medical Oncology Oncology [facility] 2016-04-01 2016-04-01 Rodrigo Gallegos 20 [id number] 00:00:00 00:00:00 Adri rn Medical Medical Oncology Oncology Center [facility] 2016-03-25 2016-03-25 Outpatient Rodrigo Allen [id number] 00:00:00 00:00:00 rn [facility] Oncology Oncology [facility] 2016-03-19 2016-03-19 Outpatient Rodrigo Allen [id number] 00:00:00 00:00:00 rn [facility] On[facility] Oncology [facility] 2016-03-13 2016-03-13 Outpatient Rodrigo Allen [id number] 00:00:00 00:00:00 rn [facility] On[facility] Oncology [facility] 2015-12-10 2015-12-10 Outpatient Rodrigo Allen [id number] 00:00:00 00:00:00 rn [facility] 2015-11-13 2015-11-13 Outpatient Rodrigo Allen [id number] 00:00:00 00:00:00 rn [facility] 2015-10-16 2015-10-16 Outpatient Rodrigo Allen [id number] 00:00:00 00:00:00 rn [facility] On[facility] Payers Payer Name Policy Policy Number Effective Expiration Type Date Date Medicaid [place] MEDICAIDMEDICAIDxxxxxxxxxxEffective xxxxxxxxxx for all [phone] MEDICAID [id number] Plan of Treatment Planned Activity Planned Date Details Comments Future Scheduled Test [code = ] Future Scheduled Test [code = ] Instructions Instructions Alissa George sa, MD - 01/21/2019Thank you for letting us take care of you.You have been evalua violet for knee pain and swelling. We impro karly the pain and saw a possible stress f racture in a different part of your leg, but your knee did not look infected. We a re giving you some pain medications to reynaldo e as needed - use with caution as the y are addictive.Please read the attach ed patient information.Please take medications as prescribed.At thi s time, you have no clinical evidence of symptoms or problems that will require hospitalization, however you ashely uld be evaluated soon by a primary care physician, and contact informati on has been provided.If you have any of the following symptoms, please retur n to the Emergency Department for further evaluation:--Worsening of sympto ms--Fever >101F--Persistent shortness of breath--Persistent nausea or vom iting not controlled with medication--Nitesh ting or loss of consciousness--Numbness, weakness, or loss of strength, e specially on one side of your body--Any sy mptom concerning to youWe are open 24ttachmentsThe following att achments cannot be sent through Care Everywhere.HEMA Wrap (DANISH)SHEN E (DANISH) Social History Social Habit Start Date Stop Date Comments Tobacco use: Smoking Status Start Date Stop Date Unknown if ever smoked 2019-01-21 00:00: 00 Never 2016-04-01 11:33:32 Social History Observation Description Sex Female Vital Signs Vital Name Observation Time Observation Value Comments Temperature 2019-08-02 14:34:31 98.6 [degF] Pulse 2019-08-02 14:34:31 58 /min Pattern: Reg ular O2 SAT 2019-08-02 14:34:31 99 % Room air BP Systolic 2019-08-02 14:34:31 142 mm[Hg] Patient Posi tion: Sitting; Cuff Location: Left A rm; Cuff Size: Stand vero BP Diastolic 2019-08-02 14:34:31 80 mm[Hg] Patient Posi tion: Sitting; Cuff Location: Left A rm; Cuff Size: Stand vero Weight 2019-08-02 14:34:31 170 [lb_av] Height 2019-08-02 14:34:31 62 [in_us] Body Mass Index 2019-08-02 14:34:31 31.09 kg/m2 Calculated Bdy height 2019-04-05 12:04:11 62.0000 [in_i] Heart rate 2019-04-05 12:04:11 82.0000 /min Resp rate 2019-04-05 12:04:11 14.0000 /min BP sys 2019-04-05 12:04:11 130.0000 mm[Hg] Body temperature 2019-04-05 12:04:11 97.6000 [degF] Weight 2019-04-05 12:04:11 169.0000 [lb_av] BMI 2019-04-05 12:04:11 30.9100 BP carolina 2019-04-05 12:04:11 66.0000 mm[Hg] Systolic blood pressure 2019-01-21 11:49:00 146 mm[Hg] Diastolic blood pressure 2019-01-21 11:49:00 73 mm[Hg] Heart rate 2019-01-21 11:49:00 56 /min Body temperature 2019-01-21 11:49:00 36.67 Georgina Respiratory rate 2019-01-21 11:49:00 18 /min Body height 2019-01-21 11:49:00 157.5 cm Body weight 2019-01-21 11:49:00 74.844 kg BMI 2019-01-21 11:49:00 30.18 kg/m2 Oxygen saturation in 2019-01-21 11:49:00 100 % Arterial blood by Pulse oximetry BMI 2016-07-09 15:30:06 35.0100 BP [place] 2016-07-09 15:30:06 80.0000 mm[Hg] Bdy height 2016-07-09 15:30:06 62.0000 [in_i] Heart rate 2016-07-09 15:30:06 69.0000 /min Resp rate 2016-07-09 15:30:06 20.0000 /min BP sys 2016-07-09 15:30:06 159.0000 mm[Hg] Body temperature 2016-07-09 15:30:06 96.8000 [degF] Weight 2016-07-09 15:30:06 191.4000 [lb_av] BMI 2016-04-01 11:32:02 36.0700 BP [place] 2016-04-01 11:32:02 71.0000 mm[Hg] Bdy height 2016-04-01 11:32:02 62.0000 [in_i] Heart rate 2016-04-01 11:32:02 62.0000 /min Resp rate 2016-04-01 11:32:02 18.0000 /min BP sys 2016-04-01 11:32:02 145.0000 mm[Hg] Body temperature 2016-04-01 11:32:02 98.5000 [degF] Weight 2016-04-01 11:32:02 197.2000 [lb_av] Hospital Discharge Instructions NameDatesDechristinasDestiny Instruction Information AvailableInsAlissa Flores MD - 01/21/2019Thank you for letting us take care of you. You have been evaluated for knee pain and swelling. We improved the pain and saw a possible stress fracturein a different part of your leg, but your knee did not look infected. We are giving you some pain medications to take as needed - use with caution as they are addictive. Please read the attached patient information. Please take medications as prescribed. At this time, you have no clinical evidence of symptoms or problems that will require hospitalization, however you should be evaluated soon by a primary care physician, and contact information has been provided. If you have any of the following symptoms, please return to the Emergency Department for further evaluation: --Worsening of symptoms --Fever >101F --Persistent shortness of breath --Persistent nausea or vomiting not controlled with medication --Fainting or loss of consciousness --Numbness, weakness, or loss of strength, especially on one side of your body --Any symptom concerning to you We are open 26/04 AttachmentsThe following attachments cannot be sent through Care Everywhere.HEMA Wrap (DANISH)RICE (DANISH)documented in this encounter
== END 2020-08-15 16:24 | disposition home or self-care (01) ==
LOC: ER 10:28
DX: F41.9 Anxiety disorder, unspecified (principal); R53.1 Weakness; I10 Essential (primary) hypertension; F17.200 Nicotine dependence, unspecified, uncomplicated; Z88.0 Allergy status to penicillin
CPT/HCPCS: 36415; 71046; 80053; 83735; 84443; 84484; 85025; 93005; 93010; 99285